=== PATIENT | male | born 1950 | race African-American/Black ===

== ENCOUNTER 2016-11-05 12:38 | Inpatient (IN) | payer OTHER ==
[~2016-11-05] VITALS: Ht 177.8 cm; Wt 65.8 kg
[2016-11-05 12:39] VITALS: BP 143/72
[2016-11-05 14:23] LABS: HEMATOCRIT 32.7 % (42.0-52.0); HEMOGLOBIN 10.1 gm/dL (14.0-18.0); MANUAL DIFF YES; MCH 23.7 pg (26.0-34.0); MCV 76.4 fL (80.0-100.0); PLATELET COUNT 298 thou/uL (150-400); RBC 4.27 mil/uL (4.50-6.00); RDW 18.8 % (10.5-14.5); WBC 12.8 thou/uL (4.0-11.0)
[2016-11-05 14:30] LABS: ANION GAP 4 mmol/L (7-16); BUN 60 mg/dL (7-18); CALCIUM 9.3 mg/dL (8.5-10.1); CHLORIDE 102 mmol/L (98-107); CO2 38 mmol/L (21-32); CREATININE 2.2 mg/dL (0.7-1.3); GLUCOSE 165 mg/dL (74-106); POTASSIUM 4.2 mmol/L (3.5-5.1); SODIUM 144 mmol/L (136-145)
[2016-11-05 14:37] LABS: ALBUMIN 2.4 g/dL (3.4-5.0); ALKALINE PHOSPHATASE 46 U/L (46-116); DIRECT BILIRUBIN < 0.1 mg/dL (<0.1-0.3); SGOT 21 U/L (15-37); TOTAL BILIRUBIN 0.3 mg/dL (<0.1-1.0); TOTAL PROTEIN 9.2 g/dL (6.4-8.2)
[2016-11-05 14:46] LABS: ABSOLUTE NEUTROPHILS 8.2 thou/uL (1.4-8.2); TOTAL CELL COUNT 100
[2016-11-05 14:47] LABS: ANISOCYTOSIS 2+; HYPOCHROMASIA 1+; MICROCYTES 3+; PLATELET ESTIMATE NORMAL; POLYCHROMASIA 1+
[2016-11-05 14:53] LABS: SGPT 12 U/L (30-65)
[2016-11-05 15:11] LABS: URINE BILIRUBIN NEGATIVE (Negative); URINE BLOOD 2+ (Negative); URINE COLOR YELLOW; URINE GLUCOSE-RANDOM* NEGATIVE (Negative); URINE KETONES NEGATIVE (Negative); URINE NITRITE NEGATIVE (Negative); URINE PROTEIN (DIPSTICK) 3+ (Negative); URINE SPECIFIC GRAVITY 1.015 (1.003-1.035); URINE UROBILINOGEN 0.2 E.U./dl (0.2-1.0)
[2016-11-05 15:22] LABS: CASTS None Seen /LPF (None Seen); SQUAMOUS 0-3 Few /LPF (0-3)
[2016-11-05 15:23] LABS: AMORPHOUS URATES Many /LPF (None Seen); BACTERIA >30 Many /HPF (None Seen)
[2016-11-05 17:08] VITALS: BP 118/94
[2016-11-05 20:21] VITALS: BP 128/72
[2016-11-05 23:30] VITALS: BP 138/74
[2016-11-05] MEDS ORDERED: AMLODIPINE BESY10 MG PER TUBE (23:57)
[2016-11-05] MEDS ORDERED: ASPIR 8181 M1 PER TUBE (23:59)
[2016-11-06] MEDS ORDERED: ACID CONTROLLER20 MG PER TUBE (00:01)
[2016-11-06] MEDS ORDERED: XANAX 0.25 MG0.25 MG PO (00:02)
[2016-11-06] MEDS ORDERED: COREG25 MG PO (00:03)
[2016-11-06] MEDS ORDERED: ALLERGY RELIEF10 M5 PO (00:05)
[2016-11-06] MEDS ORDERED: VALPROIC A250 MG/51 PO (00:07)
[2016-11-06] MEDS ORDERED: TRANSDERM-SCO1 PATC1 TOP (00:10)
[2016-11-06] MEDS ORDERED: DUONEB 2.5-0.5 M3 ML NASAL (00:13)
[2016-11-06] MEDS ORDERED: XANAX 0.5 MG0.5 MG PO (00:14)
[2016-11-06] MEDS ORDERED: ATROPINE 1% EYE D11 SUBLING (00:16)
[2016-11-06] MEDS ORDERED: BENADRYL ITCH28.3 GM TOP (00:18)
[2016-11-06] MEDS ORDERED: BISACODYL SUPP10 MG RECTAL (00:19)
[2016-11-06] MEDS ORDERED: BENADRYL25 MG PER TUBE (00:21)
[2016-11-06] MEDS ORDERED: HYDROCODONE-AP1 EAC6 PER TUBE (00:22)
[2016-11-06] MEDS ORDERED: LIQUITEARS15 ML INTRAOCULR (00:25)
[2016-11-06] MEDS ORDERED: MAPAP160 MG/53 PER TUBE (00:28)
[2016-11-06] MEDS ORDERED: MOM PER TUBE (00:31)
[2016-11-06 03:35] VITALS: BP 132/71
[2016-11-06 06:28] LABS: ALBUMIN 2.2 g/dL (3.4-5.0); CREATININE 2.6 mg/dL (0.7-1.3); POTASSIUM 3.9 mmol/L (3.5-5.1); TOTAL BILIRUBIN 0.3 mg/dL (<0.1-1.0)
[2016-11-06 07:40] VITALS: BP 128/65
[2016-11-06 12:05] VITALS: BP 118/61
[2016-11-06 15:50] VITALS: BP 146/81
[2016-11-06 19:38] VITALS: BP 105/75
[2016-11-07 04:26] VITALS: BP 130/192
[2016-11-07 05:47] LABS: ABSOLUTE NEUTROPHILS 5.2 thou/uL (1.4-8.2); BASOPHILS 0.3 % (0.0-2.0); EOSINOPHILS 1.9 % (0.0-3.0); HEMATOCRIT 27.8 % (42.0-52.0); HEMOGLOBIN 8.6 gm/dL (14.0-18.0); LYMPHOCYTES 23.7 % (24.0-44.0); MCH 23.9 pg (26.0-34.0); MCHC 30.9 g/dL (28.0-37.0); MCV 77.6 fL (80.0-100.0); MONOCYTES 9.4 % (1.0-8.0); POLYS 64.7 % (36.0-66.0); RBC 3.59 mil/uL (4.50-6.00); RDW 18.8 % (10.5-14.5)
[2016-11-07 05:48] LABS: MANUAL DIFF NO; PLATELET COUNT 223 thou/uL (150-400)
[2016-11-07 06:04] LABS: ALBUMIN 2.1 g/dL (3.4-5.0); CALCIUM 8.2 mg/dL (8.5-10.1); CREATININE 2.1 mg/dL (0.7-1.3); TOTAL BILIRUBIN 0.2 mg/dL (<0.1-1.0); TOTAL PROTEIN 7.7 g/dL (6.4-8.2)
[2016-11-07 07:38] VITALS: BP 138/114
[2016-11-07 11:50] VITALS: BP 153/94
[2016-11-07 15:51] VITALS: BP 149/80
[2016-11-07 19:27] VITALS: BP 120/90
[2016-11-08 04:26] VITALS: BP 176/94
[2016-11-08 05:47] LABS: HEMATOCRIT 29.9 % (42.0-52.0); MCH 23.7 pg (26.0-34.0); MCHC 30.1 g/dL (28.0-37.0); MCV 78.9 fL (80.0-100.0); RBC 3.79 mil/uL (4.50-6.00); RDW 18.8 % (10.5-14.5); WBC 9.9 thou/uL (4.0-11.0)
[2016-11-08 06:11] LABS: CALCIUM 8.6 mg/dL (8.5-10.1); CREATININE 1.8 mg/dL (0.7-1.3); POTASSIUM 4.1 mmol/L (3.5-5.1)
[2016-11-08 08:00] VITALS: BP 150/71
[2016-11-08 11:16] VITALS: BP 120/66
[2016-11-08 15:45] VITALS: BP 118/60
[2016-11-08 19:27] LABS: URINE BILIRUBIN NEGATIVE (Negative); URINE BLOOD 2+ (Negative); URINE COLOR YELLOW; URINE GLUCOSE-RANDOM* NEGATIVE (Negative); URINE KETONES NEGATIVE (Negative); URINE NITRITE NEGATIVE (Negative); URINE PROTEIN (DIPSTICK) 2+ (Negative); URINE UROBILINOGEN 0.2 E.U./dl (0.2-1.0)
[2016-11-08 20:15] LABS: CRYSTALS None Seen /LPF (None Seen); SQUAMOUS 0-3 Few /LPF (0-3)
[2016-11-08 20:16] LABS: CASTS None Seen /LPF (None Seen); URINE RBC 0-2 Rare /HPF (0-2); URINE WBC 0-5 Rare /HPF (0-5)
[2016-11-08 20:17] LABS: BACTERIA 1-9 Few /HPF (None Seen)
[2016-11-08 20:42] VITALS: BP 160/82
[2016-11-09 04:25] LABS: HEMATOCRIT 27.5 % (42.0-52.0); HEMOGLOBIN 8.5 gm/dL (14.0-18.0); MCH 24.1 pg (26.0-34.0); MCHC 30.9 g/dL (28.0-37.0); MCV 77.8 fL (80.0-100.0); RBC 3.53 mil/uL (4.50-6.00); RDW 18.7 % (10.5-14.5); WBC 10.5 thou/uL (4.0-11.0)
[2016-11-09 04:28] LABS: CALCIUM 8.5 mg/dL (8.5-10.1); CREATININE 1.8 mg/dL (0.7-1.3)
[2016-11-09 04:59] VITALS: BP 122/57
[2016-11-09 07:10] VITALS: BP 141/79
== END 2016-11-09 11:05 | DRG 698 ==
LOC: ER 12:38 → 3N 16:00 → 4W 16:00 → EROBS 16:00 → 3N 16:45 → 4W 18:37
PROVIDERS: Family Medicine; Internal Medicine Pulmonary Disease; Nurse Practitioner
PROC: 0T2BX0Z Change Drainage Device in Bladder, External Approach (ICD-10-PCS; principal; 2016-11-05)
DX: T83.511A Infection and inflammatory reaction due to indwelling urethral catheter, initial encounter (principal); J96.21 Acute and chronic respiratory failure with hypoxia; N17.9 Acute kidney failure, unspecified; E44.0 Moderate protein-calorie malnutrition; K94.23 Gastrostomy malfunction; E87.0 Hyperosmolality and hypernatremia; J44.9 Chronic obstructive pulmonary disease, unspecified; H54.8 Legal blindness, as defined in USA; E86.0 Dehydration; N39.0 Urinary tract infection, site not specified; Y83.8 Other surgical procedures as the cause of abnormal reaction of the patient, or of later complication, without mention of misadventure at the time of the procedure; R13.10 Dysphagia, unspecified; Z79.899 Other long term (current) drug therapy; Z68.20 Body mass index [BMI] 20.0-20.9, adult; Z93.0 Tracheostomy status; I69.320 Aphasia following cerebral infarction; I69.391 Dysphagia following cerebral infarction; Y92.89 Other specified places as the place of occurrence of the external cause
CPT/HCPCS: 10045

== ENCOUNTER 2016-11-13 23:17 | Inpatient (IN) | payer OTHER | END 2016-11-18 19:22 | DRG 208 | LOC: ER 23:17 → EROBS 11-14 01:18 → ICU 11-14 01:43 | PROC: 30233N1 Transfusion of Nonautologous Red Blood Cells into Peripheral Vein, Percutaneous Approach (ICD-10-PCS; principal; 2016-11-14) | PROC: 5A1945Z Respiratory Ventilation, 24-96 Consecutive Hours (ICD-10-PCS; 2016-11-15) | DX: J96.22 Acute and chronic respiratory failure with hypercapnia (principal); G93.41 Metabolic encephalopathy; J69.0 Pneumonitis due to inhalation of food and vomit; N17.9 Acute kidney failure, unspecified; J90 Pleural effusion, not elsewhere classified; D64.9 Anemia, unspecified; I10 Essential (primary) hypertension; J96.01 Acute respiratory failure with hypoxia; G40.909 Epilepsy, unspecified, not intractable, without status epilepticus; I12.9 Hypertensive chronic kidney disease with stage 1 through stage 4 chronic kidney disease, or unspecified chronic kidney disease; N18.3 Chronic kidney disease, stage 3 (moderate); Z66 Do not resuscitate; D63.1 Anemia in chronic kidney disease; I69.320 Aphasia following cerebral infarction ==